=== PATIENT | female | born 1980 | race Caucasian/White ===

== ENCOUNTER 2017-03-30 14:26 | Emergency (ER) | payer OTHER ==
[~2017-03-30] VITALS: Ht 154.9 cm; Wt 80.0 kg
[2017-03-30 14:28] VITALS: BP 163/109; PULSE 101; RESP 20; O2SAT 100
[2017-03-30 15:21] LABS: BASOPHILS % (AUTO) 0.3 % (0-3); EOSINOPHILS % (AUTO) 0.4 % (0-5); MONOCYTES % (AUTO) 4.9 % (4-12); Mean Corpuscular Hemoglobin 29.5 pg (27.0-35.0); Mean Corpuscular Volume 85.1 fL (81-100); NEUTROPHILS % (AUTO) 73.6 % (40-74); Platelet Count 440 bil/L (150-400)
[2017-03-30 18:15] VITALS: BP 152/107; PULSE 103; O2SAT 97
--- NOTE | 2017-03-30 18:32 | ED.REPORT ---
HPI-General Illness Date of Service Mar 30, 2017 ED Provider: Claudio Flores MD Pt is a 37 year old female with a history of anxiety and ear infections who presents to the ED complaining of intermittent worsening dizziness onset 2 weeks ago. She c/o associated lightheadedness, nausea, subjective fever, headache, earache predominately in her left ear, and anxiety with SOB. She denies ear ringing. The pt reports that she typically takes Dramamine for her symptoms, but she does not like taking it all the time. Per pt, the length of her symptoms vary and are triggered by moving, walking, driving, and turning over from one side to the other while laying down. The pt also reports that she takes Claritin regularly for her allergies. Nursing Notes Stated Complaint: DIZZY Chief Complaint: General Complaint Nursing Notes Reviewed: Yes Allergies: Coded Allergies: No Known Allergies (Unverified , 03/30/17) Scheduled Meclizine (Bonine) 25 Mg Tab.chew 25 MG PO TID General Time Seen by MD: 18:27 Chief Complaint Dizziness Hx Obtained From: Patient Arrived By: Walk-in Sudden in Onset?: No Onset Occurred: More than a week ago... (2 weeks) Symptom Duration: Intermittent Location: : Ear left: Ear right Quality: Aching Severity: Current: Moderate Severity: Maximum: Moderate Recent Healthcare: No recent doctor visit, No recent hospitalization Similar Sx Previous: Yes Past Medical History Past Medical History Notes: No current primary care provider Past Medical History Ear infections Allergies - takes Claritin regularly Scoliosis Denies: Diabetes mellitus, Hypertension Past Surgical History Spinal steel rods (for scoliosis) Family History Reports: Diabetes mellitus, Hypertension Smoking History Former Smoker Social History Alcohol Use: "Social" Drug Use: Denies drug use Other Social History: Good social support Ambulatory Status Independent Review of Systems Full Review of Systems Ears / Nose / Throat: Reports: Earache bilateral (most prominent in left ear), Denies: Ear ringing bilateral Respiratory: Reports: Shortness of breath GI: Reports: Nausea Neurologic: Reports: Dizziness (motion sensation), Headache, Lightheaded, Denies: Spinning sensation Psychiatric: Reports: Anxiety Complete sys rev & neg: except as marked. Physical Exam Vital Signs Vital Signs Date Time Temp Pulse Resp B/P Pulse Ox O2 Delivery O2 Flow Rate FiO2 03/30/17 20:11 36.9 88 20 145/97 97 Room Air 03/30/17 18:15 103 152/107 97 03/30/17 14:28 36.9 101 20 163/109 100 Room Air Initial VS: Reviewed Respiratory: Breath sounds normal, Clear to auscultation, No respiratory distress Cardiovascular: Regular rate & rhythm, Heart sounds normal, Intact distal pulses Extremities: Vascular intact, Neuro intact Skin: Warm, Dry, No cyanosis Neurologic: Alert, Oriented, Nonfocal Psychiatric: Mood/affect normal, Behavior normal General/Constitutional: Awake, Alert Head / Eyes: Atraumatic, Normocephalic No facial droop; symmetric. ENT: Atraumatic, Airway patent, Pharynx NL, Ext aud canal NL Left TM is mildly dulled without signs of impaction and with a little fluid behind it. Hearing is grossly intact. No nystagmus. Neck: Atraumatic, Supple, Full range of motion No cervical adenopathy. Interpretation & Diagnostics Lab Results Interpretation Result Diagram: 03/30/17 1516 03/30/17 1516 Test 03/30/17 15:16 03/30/17 20:00 White Blood Count 10.1th/mm3 (3.8-10.1) Red Blood Count 4.51mil/mm3 (3.90-5.20) Hemoglobin 13.3g/dL (12.0-15.6) Hematocrit 38.4% (35.0-46.0) Mean Corpuscular Volume 85.1fL (81-100) Mean Corpuscular Hemoglobin 29.5pg (27.0-35.0) Mean Corpuscular Hemoglobin Concent 34.6% (32.0-37.0) Red Cell Distribution Width 12.1% (12.3-15.4) Platelet Count 440bil/L (150-400) Neutrophils (%) (Auto) 73.6% (40-74) Lymphocytes (%) (Auto) 20.6% (14-46) Monocytes (%) (Auto) 4.9% (4-12) Eosinophils (%) (Auto) 0.4% (0-5) Basophils (%) (Auto) 0.3% (0-3) Sodium Level 137mEq/L (134-144) Potassium Level 4.0mEq/L (3.5-5.2) Chloride Level 98mEq/L (97-108) Carbon Dioxide Level 20mmol/L (18-29) Blood Urea Nitrogen 9mg/dL (6-20) Creatinine 0.48mg/dL (0.57-1.00) Estimat Glomerular Filtration Rate 208mL/min (>59) Glucose Level 85mg/dL (60-99) Calcium Level 10.0mg/dL (8.5-10.1) Total Bilirubin 0.5mg/dL (0.0-1.2) Aspartate Amino Transf (AST/SGOT) 19U/L (0-50) Alanine Aminotransferase (ALT/SGPT) 20U/L (0-32) Alkaline Phosphatase 61U/L (25-150) Troponin T < 0.010ug/L (0.0-0.011) Total Protein 7.8g/dL (6.4-8.4) Albumin 4.8g/dL (3.4-5.0) Hold Urine Received (Received) Lab Results Interpretation: U preg and u tox negative ECG Interpretation ECG Interpretation: Sinus rhythm with a rate of 96 Time: 17:35 Interpreted by: ED physician Re-Eval/Medical Decision Med Decision/Clinical Course minimal tachycardia noted. does not appear significant. Source of Hx: Old records Time of Eval: 20:10 Re-Evaluation/Progress Note: Pt rechecked. Informed pt of plan for discharge. Pt understands and agrees with plan for discharge. F/U instructions and RTER warnings given. All questions addressed. Counseled Regarding: Diagnosis, Lab results, Need for follow-up, When/why to return to ED Discharge & Departure Primary Impression: Peripheral vertigo involving left ear Additional Impression: Acute otitis media with effusion of left ear Disposition: Home Discharge Condition All VS Reviewed: Yes Condition: Stable Patient Instructions: Eustachian Tube Dysfunction (GEN) Additional Instructions: Emergency Department evaluation included interview and examination. We also performed labs which are reassuring. The dizziness appears to be related to middle ear fluid. Likely this is caused by allergies. Via nasal steroids such as Nasacort daily in both nostrils. Continue the Claritin and had Afrin nasal spray to each nostril for 2-3 days. Meclizine 25 mg every 8 hours as needed for dizziness. Follow-up with ENT, call and make an appointment. Return to emergency department for disabling dizziness, severe headache, frequent vomiting or new onset weakness. Call the [facility] resident's clinic to establish primary care. Referrals: Ronny Mckeon MD [facility] Scribe Attestation Portions of this note were transcribed by Jonna Abad. I, Dr. Flores personally performed the history, physical exam and medical decision-making; I reviewed and confirmed the accuracy of the information in the transcribed note. Signed by : Gideon Pepper, 03/30/17. copies to: Ronny Mckeon MD; [facility] Claudio Flores MD Mar 30, 2017 18:31 Jonna Cortez Mar 30, 2017 18:32
[2017-03-30] MEDS ORDERED: MECL-114 PO (20:05)
[2017-03-30 20:11] VITALS: BP 145/97; PULSE 88; RESP 20; O2SAT 97
== END 2017-03-30 20:13 | disposition home or self-care (01) ==
LOC: SED 14:26
DX: H81.392 Other peripheral vertigo, left ear (principal); H65.192 Other acute nonsuppurative otitis media, left ear; F41.9 Anxiety disorder, unspecified; Z87.891 Personal history of nicotine dependence